=== PATIENT | female | born 1940 | race Hispanic/Latino ===

== ENCOUNTER → 2018-05-22 | Outpatient (CLI) | payer MEDICARE ==
--- NOTE | 2018-05-22 12:40 | Diagnostic Imaging Report ---
EXAM: RUQ ULTRASOUND Date: 05/22/2018 11:58 AM Indication: Abnormal LFTs Comparison: None Technique: Sonographic evaluation of the right upper quadrant. Color doppler was utilized to supplement evaluation. FINDINGS: LIVER: No focal lesion is identified. The liver measures 12.7 cm in the right midclavicular line. Echotexture is increased. BILIARY: The gallbladder has a normal appearance, without evidence for gallstones, gallbladder wall thickening or pericholecystic fluid. The common bile duct measures 0.3 cm. PANCREAS: The pancreas is incompletely visualized due to overlying bowel gas, but no abnormality identified involving the visualized portions of the pancreas. RIGHT KIDNEY: Measures 10.4 cm in length. No hydronephrosis or solid mass lesion identified. PERITONEUM: No free fluid. VASCULATURE: Aorta: Visualized portions appear unremarkable. Interior vena cava: Visualized portions appear unremarkable. Portal Vein: Nondilated with hepatopedal flow. IMPRESSION: Mild increased hepatic echotexture, which can be seen in the setting of steatosis or chronic liver disease. Signed by: Dr. Devonte Gallegos MD on 05/22/2018 12:37 PM
== END ==
LOC: US 11:50
PROVIDERS: ATTEND Internal Medicine Gastroenterology
DX: R94.5 Abnormal results of liver function studies (principal)
CPT/HCPCS: 76705

== ENCOUNTER → 2024-05-22 | Outpatient (REF) | payer MEDICARE | LOC: RAD 14:24 | PROVIDERS: ATTEND Family Medicine | DX: R05.3 Chronic cough (principal) | CPT/HCPCS: 71046 ==

== ENCOUNTER → 2024-06-04 | Outpatient (REF) | payer MEDICARE | LOC: DX 09:40 | PROVIDERS: ATTEND Family Medicine | DX: R05.3 Chronic cough (principal) | CPT/HCPCS: 74246 ==